=== PATIENT | female | born 1950 | race African-American/Black ===

== ENCOUNTER 2021-03-26 09:20 | Emergency (ER) | payer MEDICARE, OTHER | END 2021-03-26 11:39 | disposition home or self-care (01) | LOC: FER 09:20 | DX: S61.214A Laceration without foreign body of right ring finger without damage to nail, initial encounter (principal); I25.2 Old myocardial infarction; I11.0 Hypertensive heart disease with heart failure; I50.9 Heart failure, unspecified; Z23 Encounter for immunization; Z86.73 Personal history of transient ischemic attack (TIA), and cerebral infarction without residual deficits; W49.04XA Ring or other jewelry causing external constriction, initial encounter; Y92.009 Unspecified place in unspecified non-institutional (private) residence as the place of occurrence of the external cause | CPT/HCPCS: 73130; 90471 ==